=== PATIENT | female | born 1950 | race Two or more races ===

== ENCOUNTER 2019-03-01 17:45 | Emergency (ER) | payer MEDICARE, MEDICAID ==
[~2019-03-01] VITALS: Ht 162.6 cm; Wt 63.5 kg
[~2019-03-01 17:45] MED LIST: CLON0.5T12 PO
--- NOTE | 2019-03-01 18:02 | NUR ---
BIB SELF W C/O R FLANK PAIN SINCE THIS MORNING. TO ER BED 2, HOOKED TO MONITOR, CHANGED TO GOWN, AWAITING MD SULLIVAN.
--- NOTE | 2019-03-01 18:20 | NUR ---
DR FRANCIS AT BEDSIDE
[2019-03-01] MEDS ORDERED: KETOROLAC TROMETHAMINE INJ 30 MG/ML VIAL IV ONE (18:30)
[2019-03-01] MEDS ORDERED: IV NS 0.9% 1,000 ML BAG IV ONE (18:30)
[2019-03-01] MEDS ORDERED: ONDANSETRON HCL/PF 4 MG/2 ML VIAL IVP ONE (18:30)
[2019-03-01] MEDS ORDERED: MORPHINE SULFATE INJ 2 MG/ML DISP.SYRIN IV ONE (18:30)
[2019-03-01] MEDS ORDERED: MORPHINE SULFATE INJ 4 MG/ML DISP.SYRIN ONE (18:42)
[2019-03-01] MEDS ORDERED: KETOROLAC TROMETHAMINE 15 MG/ML VIAL ONE (18:42)
[2019-03-01] MEDS ORDERED: ONDANSETRON HCL/PF 4 MG/2 ML VIAL ONE (18:42)
[2019-03-01 18:56] LABS: BASOPHILS % (AUTO) 0.4 % (0.0-2.0); EOSINOPHILS % (AUTO) 0.2 % (0.0-6.0); HEMATOCRIT 39 % (33-45); HEMOGLOBIN 12.8 g/dL (11.5-14.8); LYMPHOCYTES % (AUTO) 7.7 % (20.0-44.0); MEAN CORPUSCULAR HGB CONC 33 g/dl (31.0-36.0); MEAN CORPUSCULAR VOLUME 91 fL (82-100); MONOCYTES # (AUTO) 0.8 /CMM (0.1-1.30); MONOCYTES % (AUTO) 6.5 % (2.0-12.0); NEUTROPHILS # (AUTO) 10.8 /CMM (1.8-8.9); NEUTROPHILS % (AUTO) 85.2 % (43.0-81.0); PLATELET COUNT (AUTO) 214 /CMM (150-450); RED BLOOD CELL COUNT(AUTO) 4.24 MIL/uL (4.0-5.2); WHITE BLOOD COUNT (AUTO) 12.6 K/uL (4.3-11.0)
[2019-03-01 19:07] LABS: CALCIUM, SERUM 8.8 mg/dL (8.5-10.1); CREATININE 1.3 mg/dL (0.6-1.3); POTASSIUM 3.7 mmol/L (3.5-5.1)
[2019-03-01 19:12] LABS: ALBUMIN 3.9 g/dL (3.4-5.0); BILIRUBIN,DIRECT 0.2 mg/dL (0.0-0.2); BILIRUBIN,TOTAL 1.1 mg/dL (0.2-1.0); TOTAL PROTEIN, SERUM 7.4 g/dL (6.4-8.2)
--- NOTE | 2019-03-01 19:24 | NUR ---
URINE SAMPLE SENT TO LAB
--- NOTE | 2019-03-01 19:27 | NUR ---
REPOR GIVEN TO GILLES LLANES FOR GAMAL
--- NOTE | 2019-03-01 20:08 | NUR ---
PT AMBULATED TO BATHROOM W/ STEADY GAIT. URINE SAMPLE OBTAINED AND SENT TO LAB.
[2019-03-01 20:14] LABS: APPEARANCE,URINE Cloudy (CLEAR); BILIRUBIN,URINE MODERATE (NEGATIVE); BLOOD, URINE Large Ery/uL (NEGATIVE); COLOR,URINE Dark (YELLOW); KETONES,URINE 40 (NEGATIVE); LEUKOCYTE ESTERASE ,URINE Negative (NEGATIVE); NITRITE, URINE Negative (NEGATIVE); PH,URINE 5.5 (5.0-8.0); PROTEIN,URINE 100 mg/dl (NEGATIVE); UGLUCOSE Negative (NEGATIVE)
[2019-03-01 20:44] LABS: BACTERIA,URINE Few /HPF (None Seen); RBC,URINE 81-100 /HPF (0-2); SQUAMOUS EPITHELIAL CELL,UR Few /HPF (None Seen); URINE AMORPHOUS URATE Few /HPF (None Seen)
--- NOTE | 2019-03-01 20:48 | NUR ---
Patient discharged to home in stable condition. Written and verbal after care instructions given. Patient verbalizes understanding of instruction. IV removed. Catheter intact and site benign. Pressure and 4x4 applied to site. No bleeding noted. Pt ambulatory with steady gait.
[2019-03-01 20:49] VITALS: BP 132/81
== END 2019-03-01 20:50 | disposition home or self-care (01) ==
LOC: ER 17:46
DX: N23 Unspecified renal colic (principal); F41.9 Anxiety disorder, unspecified; Z79.899 Other long term (current) drug therapy
CPT/HCPCS: 36415; 74176; 80048; 80076; 81001; 85025; 96374; 96375; 99284; J1885; J2270; J2405; J7030; 81000-TC

== ENCOUNTER 2023-10-23 20:09 | Emergency (ER) | payer MEDICARE, OTHER ==
[~2023-10-23] VITALS: Ht 160 cm; Wt 76.2 kg
[~2023-10-23 20:09] MED LIST changes: -CLON0.5T12 PO; +CLON0.5T4 PO
[2023-10-23 23:13] LABS: BASOPHILS # (AUTO) 0.1 K/uL (0.0-0.2); BASOPHILS % (AUTO) 0.8 % (0.0-2.0); EOSINOPHILS # (AUTO) 0.1 K/uL (0.0-0.7); EOSINOPHILS % (AUTO) 1.7 % (0.0-6.0); HEMATOCRIT 42 % (33-45); HEMOGLOBIN 13.6 g/dL (11.5-14.8); LYMPHOCYTES # (AUTO) 2.2 K/uL (0.8-4.8); LYMPHOCYTES % (AUTO) 27.5 % (20.0-44.0); MEAN CORPUSCULAR HEMOGLOBIN 29 PG (26.0-33.0); MEAN CORPUSCULAR HGB CONC 33 g/dl (31.0-36.0); MEAN CORPUSCULAR VOLUME 90 fL (82-100); MONOCYTES # (AUTO) 0.7 K/uL (0.1-1.30); MONOCYTES % (AUTO) 9.3 % (2.0-12.0); NEUTROPHILS # (AUTO) 4.8 K/uL (1.8-8.9); NEUTROPHILS % (AUTO) 60.7 % (43.0-81.0); PLATELET COUNT (AUTO) 251 K/uL (150-450); RED BLOOD CELL COUNT(AUTO) 4.62 MIL/uL (4.0-5.2); RED CELL DISTRIBUTION WIDTH 14.4 % (11.5-15.0); WHITE BLOOD COUNT (AUTO) 7.9 K/uL (4.3-11.0)
[2023-10-23 23:57] LABS: CALCIUM, SERUM 9.6 mg/dL (8.5-10.1); CARBON DIOXIDE 28 mmol/L (21-32); CHLORIDE 105 mmol/L (98-107); CREATININE 0.9 mg/dL (0.6-1.3); GLUCOSE 88 mg/dL (74-106); POTASSIUM 3.6 mmol/L (3.5-5.1); SODIUM SERUM 139 mmol/L (136-145); UREA NITROGEN, BLOOD 18 mg/dL (7-18)
[2023-10-24 00:26] VITALS: BP 138/78; TEMP 98; O2SAT 99
== END 2023-10-24 00:26 | disposition home or self-care (01) ==
LOC: ER 20:14
DX: R07.89 Other chest pain (principal); R00.2 Palpitations; F41.9 Anxiety disorder, unspecified; Z79.899 Other long term (current) drug therapy
CPT/HCPCS: 36415; 71045-TC; 80048-TC; 84484-TC; 85025-TC

== ENCOUNTER 2024-11-12 16:58 | Emergency (ER) | payer MEDICARE, OTHER ==
[~2024-11-12] VITALS: Ht 160 cm; Wt 70.3 kg
[2024-11-12] MEDS ORDERED: ONDANSETRON HCL/PF 4 MG/2 ML VIAL ONE (17:28)
[2024-11-12] MEDS ORDERED: FAMOTIDINE/PF INJ 20 MG/2 ML VIAL IV ONE (17:29)
[2024-11-12] MEDS: IV NS 0.9% 1,000 ML BAG IV ONE (17:48)
[2024-11-12] MEDS: ONDANSETRON HCL/PF 4 MG/2 ML VIAL IVP ONE (17:48)
[2024-11-12] MEDS: FAMOTIDINE/PF INJ 20 MG/2 ML VIAL IV ONE (17:48)
[2024-11-12 18:11] LABS: BASOPHILS % (AUTO) 0.4 % (0.0-2.0); HEMATOCRIT 42 % (33-45); LYMPHOCYTES # (AUTO) 0.6 K/uL (0.8-4.8); LYMPHOCYTES % (AUTO) 8.5 % (20.0-44.0); MEAN CORPUSCULAR HEMOGLOBIN 30 PG (26.0-33.0); MEAN CORPUSCULAR HGB CONC 33 g/dl (31.0-36.0); MEAN CORPUSCULAR VOLUME 91 fL (82-100); MONOCYTES # (AUTO) 0.7 K/uL (0.1-1.30); MONOCYTES % (AUTO) 10.5 % (2.0-12.0); NEUTROPHILS # (AUTO) 5.5 K/uL (1.8-8.9); NEUTROPHILS % (AUTO) 80.6 % (43.0-81.0); PLATELET COUNT (AUTO) 183 K/uL (150-450); RED BLOOD CELL COUNT(AUTO) 4.62 MIL/uL (4.0-5.2); RED CELL DISTRIBUTION WIDTH 14.3 % (11.5-15.0); WHITE BLOOD COUNT (AUTO) 6.8 K/uL (4.3-11.0)
[2024-11-12 18:17] LABS: APPEARANCE,URINE CLEAR (CLEAR); BILIRUBIN,URINE 1+ (NEGATIVE); BLOOD, URINE TRACE-INTA Ery/uL (NEGATIVE); COLOR,URINE YELLOW (YELLOW); KETONES,URINE 1+ mg/dL (NEGATIVE); LEUKOCYTE ESTERASE ,URINE 1+ (NEGATIVE); NITRITE, URINE NEGATIVE (NEGATIVE); PROTEIN,URINE TRACE mg/dl (NEGATIVE); UGLUCOSE NEGATIVE (NEGATIVE)
[2024-11-12 18:29] LABS: CALCIUM, SERUM 8.9 mg/dL (8.5-10.1); CARBON DIOXIDE 27 mmol/L (21-32); CHLORIDE 104 mmol/L (98-107); GLUCOSE 105 mg/dL (74-106); POTASSIUM 3.8 mmol/L (3.5-5.1); SODIUM SERUM 140 mmol/L (136-145); UREA NITROGEN, BLOOD 15 mg/dL (7-18)
[2024-11-12 18:35] LABS: ALANINE AMINOTRANSFERASE 88 U/L (12-78); ALBUMIN 3.8 g/dL (3.4-5.0); ALKALINE PHOSPHATASE 124 U/L (46-116); ASPARTATE AMINOTRANSFERASE 87 U/L (15-37); BILIRUBIN,DIRECT 0.2 mg/dL (0.0-0.2); BILIRUBIN,TOTAL 0.9 mg/dL (0.2-1.0); LIPASE 27 U/L (16-77); TOTAL PROTEIN, SERUM 7.6 g/dL (6.4-8.2)
[2024-11-12] MEDS ORDERED: ONDA4TAB5 PO (18:58)
[2024-11-12 19:28] VITALS: BP 132/66; TEMP 99.8; O2SAT 96
[2024-11-12 19:44] LABS: ADD URINE CULTURE YES; BACTERIA,URINE 2+ /HPF (None Seen)
== END 2024-11-12 19:29 | disposition admitted as inpatient to this hospital (09) ==
LOC: ER 17:02
DX: R11.2 Nausea with vomiting, unspecified (principal); F41.9 Anxiety disorder, unspecified; R07.89 Other chest pain
CPT/HCPCS: 99285; 96374; 96361; 96375; 93005; 85025; 80048; 87086; 83690; 80076; 81001; 36415; 84484; J3490; J2405; J7030; A4223

== ENCOUNTER 2025-08-05 18:46 | Emergency (ER) | payer MEDICARE, OTHER ==
[~2025-08-05] VITALS: Ht 160 cm; Wt 72.1 kg
[~2025-08-05 18:46] MED LIST changes: +ONDA4TAB5 PO
[2025-08-05] MEDS: IV NS 0.9% 1,000 ML BAG IV ONE (19:04)
[2025-08-05] MEDS ORDERED: ONDANSETRON HCL/PF 4 MG/2 ML VIAL ONE (19:06)
[2025-08-05] MEDS ORDERED: KETOROLAC TROMETHAMINE 15 MG/ML VIAL ONE (19:06)
[2025-08-05] MEDS: KETOROLAC TROMETHAMINE 15 MG/ML VIAL IV ONE (19:08)
[2025-08-05] MEDS: ONDANSETRON HCL/PF 4 MG/2 ML VIAL IVP ONE (19:08)
[2025-08-05 19:16] LABS: PLATELET COUNT (AUTO) 235 K/uL (150-450); RED BLOOD CELL COUNT(AUTO) 4.59 MIL/uL (4.0-5.2); RED CELL DISTRIBUTION WIDTH 14.7 % (11.5-15.0); WHITE BLOOD COUNT (AUTO) 10.0 K/uL (4.3-11.0)
[2025-08-05 19:23] LABS: CALCIUM, SERUM 9.6 mg/dL (8.5-10.1); CREATININE 1.0 mg/dL (0.6-1.3); SODIUM SERUM 141.0 mmol/L (136-145); UREA NITROGEN, BLOOD 17.0 mg/dL (7-18)
[2025-08-05 19:30] LABS: ASPARTATE AMINOTRANSFERASE 33.0 U/L (15-37); TOTAL PROTEIN, SERUM 7.3 g/dL (6.4-8.2)
[2025-08-05] MEDS ORDERED: IBUP-1957 PO (19:53)
[2025-08-05] MEDS ORDERED: TAMS-12 PO (19:53)
[2025-08-05] MEDS ORDERED: ONDA4TAB11 PO (19:53)
[2025-08-05 20:00] LABS: APPEARANCE,URINE CLOUDY (CLEAR); BLOOD, URINE 3+ Ery/uL (NEGATIVE); LEUKOCYTE ESTERASE ,URINE NEGATIVE (NEGATIVE); NITRITE, URINE POSITIVE (NEGATIVE); UGLUCOSE NEGATIVE (NEGATIVE)
[2025-08-05] MEDS ORDERED: CEPH500C2 PO (20:08)
[2025-08-05 20:12] LABS: ADD URINE CULTURE YES; SQUAMOUS EPITHELIAL CELL,UR Few /HPF (None Seen)
[2025-08-05] MEDS ORDERED: CEFTRIAXONE 1 G VIAL ONE (20:12)
[2025-08-05] MEDS: CEFTRIAXONE 1GM BAG (ER ONLY) 1 GM/50 ML PIGGYBACK IV ONE (20:14)
[2025-08-05] MEDS: TAMSULOSIN 0.4 MG CAP.SR.24H PO ONE (20:14)
[2025-08-05 20:17] LABS: CALCIUM OXALATE CRYSTALS,UR Rare /HPF (None Seen)
[2025-08-05 20:56] VITALS: BP 138/77; TEMP 98.6; O2SAT 97
== END 2025-08-05 20:57 | disposition home or self-care (01) ==
LOC: ER 18:46
DX: N13.2 Hydronephrosis with renal and ureteral calculous obstruction (principal); F41.9 Anxiety disorder, unspecified; Z87.441 Personal history of nephrotic syndrome
CPT/HCPCS: 99285; 74176; 96365; 96375; 96361; 85025; 80048; 87077; 87086; 83690; 80076; 87186; 81001; 36415; J1885; J0696; J2405; J7060; J7030